=== PATIENT | female | born 1985 | race Caucasian/White ===

== ENCOUNTER 2021-06-28 10:36 | Emergency (ER) | payer SELFPAY ==
[~2021-06-28] VITALS: Ht 157.5 cm; Wt 99.8 kg
[2021-06-28] MEDS ORDERED: BACITRACIN ZINC 0.9GM TP ONE ×2 (11:00→11:07)
[2021-06-28] MEDS ORDERED: TETANUS/DIPHTHERIA TOX ADULT 0.5 ML SYR IM ONE (11:00)
[2021-06-28] MEDS ORDERED: AUGMENTIN 875-1 EACH PO (11:04)
[2021-06-28] MEDS ORDERED: TETANUS/DIPHTHERIA TOX ADULT 0.5 ML SYR ONE (11:07)
== END 2021-06-28 11:17 | disposition home or self-care (01) ==
LOC: ER 11:05
DX: S61.021A Laceration with foreign body of right thumb without damage to nail, initial encounter (principal); Z23 Encounter for immunization; Z87.891 Personal history of nicotine dependence; W26.0XXA Contact with knife, initial encounter; Y93.G3 Activity, cooking and baking
CPT/HCPCS: 90714; 99282